=== PATIENT | male | born 1960 | race Caucasian/White ===

== ENCOUNTER → 2016-03-06 | Outpatient (CLI) | payer BC | LOC: GMAM 10:53 | PROVIDERS: ATTEND Family Medicine | DX: D51.9 Vitamin B12 deficiency anemia, unspecified (principal) ==

== ENCOUNTER → 2016-06-24 | Outpatient (CLI) | payer BC | END | disposition home or self-care (01) | LOC: GMAM 10:43 | PROVIDERS: ATTEND Family Medicine | DX: Z12.5 Encounter for screening for malignant neoplasm of prostate (principal); E29.1 Testicular hypofunction; E53.8 Deficiency of other specified B group vitamins ==

== ENCOUNTER → 2016-08-21 | Outpatient (CLI) | payer BC | END | disposition home or self-care (01) | LOC: GMAM 13:20 | PROVIDERS: ATTEND Family Medicine | DX: R07.89 Other chest pain (principal) ==

== ENCOUNTER → 2016-10-17 | Outpatient (CLI) | payer BC, SELFPAY ==
--- NOTE | 2016-10-17 14:57 | US ---
EXAM DESCRIPTION: Venous,Lower Extremity LT CLINICAL HISTORY: EDEMA COMPARISON: December 06, 2015 TECHNIQUE: 2D grayscale and color venous duplex Doppler evaluation of the lower extremity are obtained from groin to calf. FINDINGS: There is normal flow, augmentation to flow, and compressibility of the deep venous vasculature of the right lower extremity with no ultrasound evidence of deep venous thrombosis. Moderate subcutaneous edema in the distal lower extremity is seen. IMPRESSION: No ultrasound evidence of deep venous thrombosis . Moderate subcutaneous soft tissue edema in the distal right lower extremity is again seen. Electronically signed by: Dejuan Guerra MD 10/17/2016 2:56 PM CDT
== END | disposition home or self-care (01) ==
LOC: RAD 13:50
PROVIDERS: ATTEND Family Medicine
DX: R60.0 Localized edema (principal)

== ENCOUNTER → 2016-10-17 | Outpatient (CLI) | payer BC | END | disposition home or self-care (01) | LOC: GMAM 13:09 | PROVIDERS: ATTEND Family Medicine | DX: I10 Essential (primary) hypertension (principal) ==

== ENCOUNTER → 2016-11-24 | Outpatient (CLI) | payer BC ==
--- NOTE | 2016-11-25 00:28 | MRI ---
EXAM DATE: 11/24/2016 2:03 PM CDT. PROCEDURE: MR LUMBAR SPINE WITHOUT IV CONTRAST. INDICATION: LOW BACK PAIN. COMPARISON: Lumbar spine from 2015. TECHNIQUE: Multiplanar T1 and T2 MRI images of the lumbar were acquired without administration of intravenous contrast. FINDINGS: The lumbar vertebral bodies demonstrate normal height and alignment. There is mild intervertebral disc space height loss at L3-L4, L4-L5, L5-S1. Normal marrow signal. The conus terminates at the level of L1-L2. The cauda equina nerve roots are unremarkable. The partially visualized thoracic cord is normal. No is made of a congenitally small spinal canal. L1-L2: No significant disc bulge or spinal canal stenosis. Mild bilateral facet arthropathy without foraminal stenosis. L2-L3: No significant disc bulge or spinal canal stenosis. Moderate facet arthropathy without foraminal stenosis. L3-L4: Diffuse disc bulge and ligamentous hypertrophy contributes to severe spinal canal stenosis, mildly progressed from the prior exam. Moderate bilateral facet arthropathy contributes to mild bilateral foraminal narrowing. L4-L5: Mild disc bulge and ligamentous hypertrophy contributes to moderate spinal canal stenosis. Effacement of both lateral recesses. Moderate/severe bilateral facet arthropathy results in mild bilateral foraminal narrowing. L5-S1: No spinal canal stenosis. Moderate bilateral facet arthropathy with mild bilateral foraminal narrowing. The partially visualized abdominopelvic organs are unremarkable. IMPRESSION: Mild multilevel degenerative changes superimposed on a congenitally small spinal canal contributes to severe spinal canal stenosis at L3-L4, mildly progressed from the prior exam. Moderate spinal canal stenosis L4-L5. Facet arthropathy. Electronically signed by: Donnell Bell MD 11/25/2016 12:26 AM CDT
== END | disposition home or self-care (01) ==
LOC: MRI 13:49
PROVIDERS: ATTEND Physician Assistant
DX: M48.06 Spinal stenosis, lumbar region (principal)

== ENCOUNTER → 2017-01-02 | Outpatient (CLI) | payer BC | END | disposition home or self-care (01) | LOC: LAB.O 12:43 | PROVIDERS: ATTEND Family Medicine | DX: J20.9 Acute bronchitis, unspecified (principal) ==

== ENCOUNTER → 2017-01-26 | Outpatient (CLI) | payer BC | END | disposition home or self-care (01) | LOC: GMAM 14:00 | PROVIDERS: ATTEND Family Medicine | DX: I10 Essential (primary) hypertension (principal); E11.9 Type 2 diabetes mellitus without complications; E29.1 Testicular hypofunction; E53.8 Deficiency of other specified B group vitamins ==

== ENCOUNTER → 2017-05-01 | Outpatient (CLI) | payer BC | LOC: GMAM 10:28 | PROVIDERS: ATTEND Family Medicine | DX: E29.1 Testicular hypofunction (principal); E53.8 Deficiency of other specified B group vitamins ==

== ENCOUNTER 2017-05-02 09:45 | Emergency (ER) | payer BC ==
[2017-05-02] MEDS ORDERED: predniSONE 20 MG TAB PO ONE (10:16)
[2017-05-02] MEDS ORDERED: KETOROLAC TROMETHAMINE INJ 60 MG/2 ML VIAL IM ONE (10:16)
[2017-05-02] MEDS ORDERED: PREGABALIN 75 MG CAP PO ONE (10:17)
--- NOTE | 2017-05-02 10:30 | ED.PDOC ---
History of Present Illness - General Chief Complaint: Back Pain or Injury Stated Complaint: Back pain Time Seen by Provider: 05/02/17 10:03 Source: patient Exam Limitations: no limitations - History of Present Illness Initial Comments: the patient is a 56-year-old male presenting to the emergency room secondary to chronic worsening low back pain. He does have significant spinal stenosis and is apparently scheduled for surgery towards the end of this month. He also apparently has some peripheral neuropathy from his diabetes. The patient's low back pain has been getting progressively worse over the last couple of weeks and especially over the last couple of days. The patient has been placed on tizanidine and hydrocodone by his primary care doctor. He reports these medications work for maybe 2 hours but then they stop working. He has the constipation under control that is due to the medications. No new symptoms just worsening of symptoms. No new sensory changes. No new weakness. No incontinence. No recent falls. He is additionally taking some prednisone and some ibuprofen at home. He has apparently been tried on gabapentin in the past with little relief. He has not been tried on Lyrica. He has taken some of his 's Tylenol 3 and tramadol without any additional benefit. He has taken some of her Xanax without any additional benefit. Timing/Duration: unsure Severity: severe Improving Factors: nothing Worsening Factors: nothing Associated Symptoms: denies symptoms Allergies/Adverse Reactions: Allergies Clindamycin Allergy (Verified 05/02/17 09:55) Rash Home Medications: Ambulatory Orders Ascorbic Acid [Vitamin C] 1,000 mg PO DAILY 05/02/17 Aspirin [Aspirin Adult Low Dose] 81 mg PO DAILY 05/02/17 Carisoprodol [Soma] 350 mg PO Q8HR PRN #60 tab 05/02/17 Dutasteride [Avodart] 0.5 mg PO DAILY 05/02/17 Esomeprazole Magnesium 40 mg PO DAILY 05/02/17 Exenatide [Bydureon] 2 mg SC WKLY 05/02/17 Furosemide 40 mg PO DAILY 05/02/17 Insulin Aspart [Novolog Flexpen] 20 unit SC BID 05/02/17 Insulin Degludec [Tresiba Flextouch] 100 unit SC DAILY 05/02/17 Losartan Potassium & Hydrochlo [Losartan Potassium/Hydroc 100-12.5 mg] 1 tab PO DAILY 05/02/17 Metformin HCl [Metformin HCl ER] 1,000 mg PO BID 05/02/17 Montelukast [Singulair] 10 mg PO DAILY 05/02/17 Potassium Chloride [K-Tab] 20 meq PO DAILY 05/02/17 Pregabalin [Lyrica] 75 mg PO BID PRN #60 cap 05/02/17 Ranitidine HCl 150 mg PO DAILY 05/02/17 Simvastatin 20 mg PO DAILY 05/02/17 Tamsulosin [Flomax] 0.4 mg PO DAILY 05/02/17 Vitamin E [E-400] 400 unit PO DAILY 05/02/17 [email or web address] HCL CD [Cardizem CD] 300 mg PO DAILY 05/02/17 predniSONE [Prednisone] 20 mg PO DAILY #7 tab 05/02/17 Review of Systems - Review of Systems Constitutional: States: no symptoms reported EENTM: States: no symptoms reported Respiratory: States: no symptoms reported Cardiology: States: no symptoms reported Gastrointestinal/Abdominal: States: no symptoms reported Genitourinary: States: no symptoms reported Musculoskeletal: States: see HPI Skin: States: no symptoms reported Neurological: States: see HPI Endocrine: States: no symptoms reported All other Systems: No Change from Baseline Past Medical History (General) - Patient Medical History Hx Stroke: No Hx Cardiac Disorders: Yes - hypercholesterolemia Hx Congestive Heart Failure: No Hx Hypertension: Yes Hx Diabetes: Yes Hx Gastroesophageal Reflux: Yes Hx MRSA: No Surgical History: other - Vaccination History Hx Influenza Vaccination: Yes - 2016 Hx Pneumococcal Vaccination: Yes - 2014 - Social History Hx Tobacco Use: No Family Medical History - Family History Father Living Status: Cause of : Pancreatic [place] Physical Exam - Physical Exam General Appearance: Alert, Obvious distress Eye Exam: bilateral normal Ears, Nose, Throat: hearing grossly normal, normal pharynx Neck: non-tender, supple Respiratory: no respiratory distress, no accessory muscle use Cardiovascular/Chest: normal peripheral pulses, no edema Peripheral Pulses: dorsalis pedis,right: 2+, dorsalis pedis,left: 2+ Gastrointestinal/Abdominal: non tender - obese, soft Rectal Exam: deferred Back Exam: CVA tenderness (R), CVA tenderness (L), decreased range of motion, muscle spasm Extremity: non-tender, no pedal edema, no calf tenderness, normal capillary refill Neurologic: remote pilot operator II-XII nml as tested, alert, oriented x 3 Skin Exam: normal color Comments: Vital Signs - 24 hr 05/02/17 09:54 Pulse Rate [ 124 H Left Radial] Respiratory 24 Rate Blood Pressure 166/99 [Left Arm] O2 Sat by Pulse 95 Oximetry Progress - Progress Progress: 05/02/17 10:32 the patient is a 56-year-old male presenting with persistent and progressive low back pain from spinal stenosis. the patient can continue taking his hydrocodone however no more than 7 tablets per day given the tylenol content. he may need to discuss with his primary care doctor next week a longer acting form with less tylenol content. the patient's muscle relaxers are going to be changed from tizanidine to soma as a trial to see if he gets more benefit. we are going to continue the prednisone at 20 mg daily for the next week. he does need to watch his blood sugars closely. additionally i'm going to add lyrica 75 mg 1-2 times daily as needed to see if he gets any additional relief. he does need to watch out for increased drowsiness. he did receive his first dose of lyrica as well as a dose of prednisone and a shot of toradol here. i'm not writing any additional anti-inflammatories in the form of nsaids given some questionable history of diabetes related chronic renal insufficiency. he needs to follow-up with his primary care doctor early next week. er warnings were given. he needs to keep well hydrated and avoid constipation. Departure - Departure Clinical Impression: Chronic lower back pain Qualifiers: Back pain laterality: unspecified Sciatica presence: unspecified whether sciatica present Qualified Code(s): M54.5 - Low back pain; G89.29 - Other chronic pain Disposition: Discharge to Home or Self Care Condition: Fair Departure Forms: ED Discharge - Pt. Copy, Patient Portal Self Enrollment Diet: diabetic diet Activity: increase activity as tolerated Referrals: Bashir Vasquez MD [Primary Care Provider] - 1-5 Days Prescriptions: Carisoprodol [Soma] 350 mg PO Q8HR PRN #60 tab PRN Reason: Muscle Spasms predniSONE [Prednisone] 20 mg PO DAILY #7 tab Pregabalin [Lyrica] 75 mg PO BID PRN #60 cap PRN Reason: Pain -- Moderate To Severe Home Medications: Ambulatory Orders Ascorbic Acid [Vitamin C] 1,000 mg PO DAILY 05/02/17 Aspirin [Aspirin Adult Low Dose] 81 mg PO DAILY 05/02/17 Carisoprodol [Soma] 350 mg PO Q8HR PRN #60 tab 05/02/17 Dutasteride [Avodart] 0.5 mg PO DAILY 05/02/17 Esomeprazole Magnesium 40 mg PO DAILY 05/02/17 Exenatide [Bydureon] 2 mg SC WKLY 05/02/17 Furosemide 40 mg PO DAILY 05/02/17 Insulin Aspart [Novolog Flexpen] 20 unit SC BID 05/02/17 Insulin Degludec [Tresiba Flextouch] 100 unit SC DAILY 05/02/17 Losartan Potassium & Hydrochlo [Losartan Potassium/Hydroc 100-12.5 mg] 1 tab PO DAILY 05/02/17 Metformin HCl [Metformin HCl ER] 1,000 mg PO BID 05/02/17 Montelukast [Singulair] 10 mg PO DAILY 05/02/17 Potassium Chloride [K-Tab] 20 meq PO DAILY 05/02/17 Pregabalin [Lyrica] 75 mg PO BID PRN #60 cap 05/02/17 Ranitidine HCl 150 mg PO DAILY 05/02/17 Simvastatin 20 mg PO DAILY 05/02/17 Tamsulosin [Flomax] 0.4 mg PO DAILY 05/02/17 Vitamin E [E-400] 400 unit PO DAILY 05/02/17 [email or web address] HCL CD [Cardizem CD] 300 mg PO DAILY 05/02/17 predniSONE [Prednisone] 20 mg PO DAILY #7 tab 05/02/17 Additional Instructions: the patient is a 56-year-old male presenting with persistent and progressive low back pain from spinal stenosis. the patient can continue taking his hydrocodone however no more than 7 tablets per day given the tylenol content. he may need to discuss with his primary care doctor next week a longer acting form with less tylenol content. the patient's muscle relaxers are going to be changed from tizanidine to soma as a trial to see if he gets more benefit. we are going to continue the prednisone at 20 mg daily for the next week. he does need to watch his blood sugars closely. additionally i'm going to add lyrica 75 mg 1-2 times daily as needed to see if he gets any additional relief. he does need to watch out for increased drowsiness. he did receive his first dose of lyrica as well as a dose of prednisone and a shot of toradol here. i'm not writing any additional anti-inflammatories in the form of nsaids given some questionable history of diabetes related chronic renal insufficiency. he needs to follow-up with his primary care doctor early next week. er warnings were given. he needs to keep well hydrated and avoid constipation.
[2017-05-02 10:44] VITALS: TEMP 97
[2017-05-02 10:47] VITALS: BP 175/99; O2SAT 97
== END 2017-05-02 10:48 | disposition home or self-care (01) ==
LOC: ER 09:45
DX: G89.29 Other chronic pain (principal); M54.5 Low back pain; E11.9 Type 2 diabetes mellitus without complications; I10 Essential (primary) hypertension; Z79.899 Other long term (current) drug therapy; Z79.82 Long term (current) use of aspirin; Z79.4 Long term (current) use of insulin
CPT/HCPCS: J1885; J7512

== ENCOUNTER 2017-07-25 07:14 | Emergency (ER) | payer BC ==
[2017-07-25 07:26] VITALS: BP 180/97; TEMP 97.4; O2SAT 96
[2017-07-25] MEDS ORDERED: LIDOCAINE 1% 10 ML VIAL INJ ONE (07:26)
--- NOTE | 2017-07-25 07:29 | ED.PDOC ---
History of Present Illness - General Chief Complaint: General Stated Complaint: Fishing hook to L 4th digit Time Seen by Provider: 07/25/17 07:28 Source: patient - History of Present Illness Initial Comments: Yves Alvarez 56 y/o male came to er fish hook accidentally stuck right 4th digit while fishing in [place].Unable to take it out. Timing/Duration: just prior to arrival Severity: moderate Location: extremities - right hand 4th digit Improving Factors: nothing Worsening Factors: movement Associated Symptoms: other - pain Allergies/Adverse Reactions: Allergies Clindamycin Allergy (Verified 05/02/17 09:55) Rash Home Medications: Ambulatory Orders Ascorbic Acid [Vitamin C] 1,000 mg PO DAILY 05/02/17 Aspirin [Aspirin Adult Low Dose] 81 mg PO DAILY 05/02/17 Carisoprodol [Soma] 350 mg PO Q8HR PRN #60 tab 05/02/17 Dutasteride [Avodart] 0.5 mg PO DAILY 05/02/17 Esomeprazole Magnesium 40 mg PO DAILY 05/02/17 Exenatide [Bydureon] 2 mg SC WKLY 05/02/17 Furosemide 40 mg PO DAILY 05/02/17 Insulin Aspart [Novolog Flexpen] 20 unit SC BID 05/02/17 Insulin Degludec [Tresiba Flextouch] 100 unit SC DAILY 05/02/17 Losartan Potassium & Hydrochlo [Losartan Potassium/Hydroc 100-12.5 mg] 1 tab PO DAILY 05/02/17 Metformin HCl [Metformin HCl ER] 1,000 mg PO BID 05/02/17 Montelukast [Singulair] 10 mg PO DAILY 05/02/17 Potassium Chloride [K-Tab] 20 meq PO DAILY 05/02/17 Pregabalin [Lyrica] 75 mg PO BID PRN #60 cap 05/02/17 Ranitidine HCl 150 mg PO DAILY 05/02/17 Simvastatin 20 mg PO DAILY 05/02/17 Tamsulosin [Flomax] 0.4 mg PO DAILY 05/02/17 Vitamin E [E-400] 400 unit PO DAILY 05/02/17 [email or web address] HCL CD [Cardizem CD] 300 mg PO DAILY 05/02/17 predniSONE [Prednisone] 20 mg PO DAILY #7 tab 05/02/17 Amoxicillin [Amoxil] 1,000 mg PO BID 7 Days #30 cap 07/25/17 Tramadol HCl 50 mg PO TID PRN #14 tab 07/25/17 Review of Systems - Review of Systems Constitutional: States: no symptoms reported EENTM: States: no symptoms reported Skin: States: see HPI All other Systems: Reviewed and Negative, No Change from Baseline Past Medical History (General) - Patient Medical History Hx Stroke: No Hx Cardiac Disorders: Yes - hypercholesterolemia Hx Congestive Heart Failure: No Hx Hypertension: Yes Hx Diabetes: Yes Hx Gastroesophageal Reflux: Yes Hx MRSA: No Surgical History: other - lumbar laminectomy - Vaccination History Hx Influenza Vaccination: Yes - 2016 Hx Pneumococcal Vaccination: Yes - 2014 - Social History Hx Tobacco Use: No Hx Physical Abuse: No Hx Emotional Abuse: No - Activities of Daily Living Patient Lives Alone: No Grooming Ability: Independent Eating (Feeding) Ability: Independent Toileting Ability: Independent Family Medical History - Family History Father Living Status: Cause of : Pancreatic [place] Physical Exam - Physical Exam General Appearance: Alert, Comfortable, No apparent distress Eyes, Ears, Nose, Throat Exam: normal ENT inspection Neck: supple, normal inspection Cardiovascular/Chest: regular rate, rhythm, no murmur Respiratory: lungs clear, normal breath sounds Gastrointestinal/Abdominal: non tender, soft Back Exam: normal inspection, no CVA tenderness Neurologic: no motor/sensory deficits, alert, oriented x 3 Skin Exam: warm/dry, normal color Skin Problem Location: upper extremities - 4th digit -retained fish hoook Lymphatic: no adenopathy Progress - Progress Progress: 07/25/17 07:36 Vital Signs - 24 hr 07/25/17 07:22 Temperature 97.4 F L Pulse Rate [ 79 Left Radial] Respiratory 20 Rate Blood Pressure 180/97 [Left Arm] O2 Sat by Pulse 96 Oximetry - EKG/XRAY/CT XRAY: hand - soft tissue FB 4th digit right Procedures - Foreign Body Removal Foreign Body Removal: fish hook - right 4th digit fish hook - cleanse with hibiclens then metacarpal block done 4th digit then using blade 2 skin incision done volar aspect 4th digit then fish hook pulled out closed incision site with prolene -4-0 Departure - Departure Clinical Impression: Foreign body (FB) in soft tissue Time of Disposition: 08:38 Disposition: Discharge to Home or Self Care Condition: Fair Departure Forms: ED Discharge - Pt. Copy, Patient Portal Self Enrollment Instructions: DI for Removal of Foreign Body From Skin Referrals: Bashir Vasquez MD [Primary Care Provider] - 1-2 Weeks Prescriptions: Amoxicillin [Amoxil] 1,000 mg PO BID 7 Days #30 cap Tramadol HCl 50 mg PO TID PRN #14 tab PRN Reason: Pain Home Medications: Ambulatory Orders Ascorbic Acid [Vitamin C] 1,000 mg PO DAILY 05/02/17 Aspirin [Aspirin Adult Low Dose] 81 mg PO DAILY 05/02/17 Carisoprodol [Soma] 350 mg PO Q8HR PRN #60 tab 05/02/17 Dutasteride [Avodart] 0.5 mg PO DAILY 05/02/17 Esomeprazole Magnesium 40 mg PO DAILY 05/02/17 Exenatide [Bydureon] 2 mg SC WKLY 05/02/17 Furosemide 40 mg PO DAILY 05/02/17 Insulin Aspart [Novolog Flexpen] 20 unit SC BID 05/02/17 Insulin Degludec [Tresiba Flextouch] 100 unit SC DAILY 05/02/17 Losartan Potassium & Hydrochlo [Losartan Potassium/Hydroc 100-12.5 mg] 1 tab PO DAILY 05/02/17 Metformin HCl [Metformin HCl ER] 1,000 mg PO BID 05/02/17 Montelukast [Singulair] 10 mg PO DAILY 05/02/17 Potassium Chloride [K-Tab] 20 meq PO DAILY 05/02/17 Pregabalin [Lyrica] 75 mg PO BID PRN #60 cap 05/02/17 Ranitidine HCl 150 mg PO DAILY 05/02/17 Simvastatin 20 mg PO DAILY 05/02/17 Tamsulosin [Flomax] 0.4 mg PO DAILY 05/02/17 Vitamin E [E-400] 400 unit PO DAILY 05/02/17 [email or web address] HCL CD [Cardizem CD] 300 mg PO DAILY 05/02/17 predniSONE [Prednisone] 20 mg PO DAILY #7 tab 05/02/17 Amoxicillin [Amoxil] 1,000 mg PO BID 7 Days #30 cap 07/25/17 Tramadol HCl 50 mg PO TID PRN #14 tab 07/25/17 Additional Instructions: Removal of sutures 04 August 2017 [facility];Replaced wound dressing 28 jul 2017 with OTC Band aid.
[2017-07-25] MEDS ORDERED: TETANUS,DIPHTHERIA,PERTUSSIS 1 EA SYG IM ONE (07:37)
[2017-07-25] MEDS ORDERED: AMOXICILLIN 500 MG CAP PO ONE ×2 (07:37→08:16)
--- NOTE | 2017-07-25 07:57 | RAD ---
EXAM: Three view(s) of the right hand. INDICATION: Pain. COMPARISON: None. FINDINGS: No acute fracture or dislocation. There are fish hooks within the soft tissues of the fourth digit. The joint spaces are preserved. IMPRESSION: Fish hooks within the soft tissues of the fourth digit Electronically signed by: Spenser Quispe MD 07/25/2017 7:56 AM CDT Workstation: [email or web address]
[2017-07-25] MEDS ORDERED: HYDROcodone 10MG/APAP 325MG 1 EA TAB PO ONE (08:43)
== END 2017-07-25 08:50 | disposition home or self-care (01) ==
LOC: ER 07:14
DX: S60.454A Superficial foreign body of right ring finger, initial encounter (principal); Z23 Encounter for immunization; I10 Essential (primary) hypertension; E78.00 Pure hypercholesterolemia, unspecified; Z79.4 Long term (current) use of insulin; Z79.82 Long term (current) use of aspirin; Z79.84 Long term (current) use of oral hypoglycemic drugs; X58.XXXA Exposure to other specified factors, initial encounter; Y92.9 Unspecified place or not applicable

== ENCOUNTER → 2017-07-31 | Outpatient (CLI) | payer BC | LOC: GMAM 11:18 | PROVIDERS: ATTEND Family Medicine | DX: E29.1 Testicular hypofunction (principal); E53.8 Deficiency of other specified B group vitamins ==

== ENCOUNTER → 2017-11-09 | Outpatient (CLI) | payer BC | LOC: GMAM 11:50 | PROVIDERS: ATTEND Family Medicine | DX: E29.1 Testicular hypofunction (principal); E53.8 Deficiency of other specified B group vitamins ==

== ENCOUNTER → 2018-04-03 | Outpatient (CLI) | payer BC | LOC: LAB.O 13:06 | PROVIDERS: ATTEND Family Medicine | DX: R30.0 Dysuria (principal) ==

== ENCOUNTER → 2018-08-02 | Outpatient (CLI) | payer BC | LOC: GMAM 15:13 | PROVIDERS: ATTEND Family Medicine | DX: E53.8 Deficiency of other specified B group vitamins (principal); I10 Essential (primary) hypertension; E11.9 Type 2 diabetes mellitus without complications; E29.1 Testicular hypofunction ==

== ENCOUNTER → 2018-09-27 | Outpatient (CLI) | payer BC ==
--- NOTE | 2018-09-28 08:13 | MRI ---
EXAM DESCRIPTION: Lumbar Spine w/o Contrast : Magnetic Resonance Imaging. CLINICAL HISTORY: LUMBAR RADICULOPATHY. Radiating pain down right leg. COMPARISON: MRI scan lumbar spine without contrast 11/24/2016. TECHNIQUE: Multiplanar, multiple standard sequences, non contrast MRI, lumbar spine. FINDINGS: The L5-S1 disc is well visualized on T2 axial series 501, image 3. Again noted is rudimentary disc at S1-S2. Minimal disc space loss and desiccation. No posterior bulging into the canal. Left facet hypertrophic arthrosis and thickened flavum ligament. Left lateral disc bulge into the soft tissues abutting the exiting left L5 nerve with borderline bony foraminal stenosis and moderate right foraminal narrowing. Stable since the prior study. L4-L5: Disc desiccation and minimal disc space loss. Posterior broad-based disc bulge with minimal endplate spurs. Bilateral moderate hypertrophic facet arthrosis and ligament thickening more on the left. AP canal diameter 10 mm. Moderate bilateral foraminal narrowing. Minimal increase in foraminal narrowing since the prior study.. L3-L4: Prior bilateral partial laminectomy and decompression. Bilateral moderate hypertrophic facet arthrosis and ligament thickening. Granulation tissue around the thecal sac and narrowing of the left subarticular recess. Posterior disc margin is smaller since the prior study. Postsurgical soft tissue changes in the posterior fascia and adipose tissue. AP canal diameter 8 mm. L2-L3: Disc space maintained with no disc desiccation. Minimal hypertrophy of the posterior ligaments and facets. AP canal diameter 9 mm. Bilateral mild foraminal narrowing. Stable since the prior study. L1-L2: Disc space maintained with normal signal in the disc. AP canal diameter 12 mm. Minimal thickening of the posterior ligaments. Bilateral foramina are patent. No change since the prior study. T12-L1: Anterior disc space maintained with narrowing posterior. Minimal disc desiccation but no bulge. Posterior elements unremarkable. Canal and foramina are patent. Stable since the prior study. No scoliosis. Paravertebral soft tissues unremarkable except for postsurgical changes noted above.. Cord normal signal and caliber. Normal marrow signal in the remaining vertebral bodies and the posterior elements. Vertebral bodies are not compressed at any level. IMPRESSION: 1. Multiple levels of the desiccated discs. Posterior elements with arthrosis and thickening generally new canal narrowing. Also multiple levels of bilateral shortened pedicles contributing to canal narrowing. 2. Left lateral L5-S1 disc bulge abutting the left L5 nerve with borderline foraminal stenosis. Moderate right foraminal narrowing. Mild canal narrowing. Stable since the prior study. 3. Minimal increase in bilateral foraminal narrowing at L4-5 since the prior study. Stable borderline mild central canal stenosis. 4. Bilateral partial laminectomy and partial discectomy at L3-4 since the prior study. Mild decompression, but central canal stenosis is mild to moderate. 5. Mild central canal stenosis at L2-3 stable since the prior study. Mild to moderate narrowing of the L1-L2 canal. Electronically signed by: Ryan Torres MD 09/28/2018 8:12 AM CDT
== END ==
LOC: MRI 06:57
PROVIDERS: ATTEND Family Medicine
DX: M51.16 Intervertebral disc disorders with radiculopathy, lumbar region (principal); M51.17 Intervertebral disc disorders with radiculopathy, lumbosacral region; M48.062 Spinal stenosis, lumbar region with neurogenic claudication

== ENCOUNTER → 2018-12-28 | Outpatient (CLI) | payer BC | LOC: LAB.O 09:51 | PROVIDERS: ATTEND Family Medicine | DX: D45 Polycythemia vera (principal) ==

== ENCOUNTER → 2019-04-11 | Outpatient (CLI) | payer BC | LOC: GMAM 12:41 | PROVIDERS: ATTEND Family Medicine | DX: N41.0 Acute prostatitis (principal); E11.9 Type 2 diabetes mellitus without complications; R79.89 Other specified abnormal findings of blood chemistry ==

== ENCOUNTER → 2019-04-11 | Outpatient (CLI) | payer BC | LOC: LAB.O 09:39 | PROVIDERS: ATTEND Family Medicine | DX: N41.0 Acute prostatitis (principal); E11.9 Type 2 diabetes mellitus without complications; R79.89 Other specified abnormal findings of blood chemistry ==

== ENCOUNTER → 2019-07-08 | Outpatient (CLI) | payer BC | LOC: GMAM 11:40 | PROVIDERS: ATTEND Family Medicine | DX: E53.8 Deficiency of other specified B group vitamins (principal); I10 Essential (primary) hypertension; E11.9 Type 2 diabetes mellitus without complications; E29.1 Testicular hypofunction; E55.9 Vitamin D deficiency, unspecified ==

== ENCOUNTER → 2020-03-20 | Outpatient (CLI) | payer BC | LOC: GMAM 14:21 | PROVIDERS: ATTEND Family Medicine | DX: E53.8 Deficiency of other specified B group vitamins (principal); I10 Essential (primary) hypertension; E11.9 Type 2 diabetes mellitus without complications; E29.1 Testicular hypofunction; E55.9 Vitamin D deficiency, unspecified ==

== ENCOUNTER → 2020-03-29 | Outpatient (CLI) | payer BC ==
--- NOTE | 2020-04-02 10:17 | NM ---
EXAM DESCRIPTION: Gastric Emptying Study CLINICAL HISTORY: 59 years Male, right upper quadrant abdominal pain COMPARISON: None available TECHNIQUE: Following an overnight fast, the patient consumed a meal containing 2 scrambled eggs, 1 slice of toast with jelly, and 120 mL of water. The eggbeaters was labeled with 1.1 mCi of Tc99m sulfur colloid. Imaging was acquired over the abdomen at various time intervals following consumption of the meal, and gastric emptying was calculated. FINDINGS: Tc99m sulfur colloid activity from the meal is seen in the stomach, and demonstrates progressive excretion into the small bowel. Gastric retention at: 0 hour: 100% 1 hour: 73% 2 hours: 36% 4 hours: <1% (> 99% gastric emptying) IMPRESSION: 1. Normal gastric emptying with >99% gastric emptying by 4 hrs. Reference: Am J Gastroenterol 2008;103:753-763. Grading for severity of delayed gastric emptying based on 4-hour value in groups related to the standard deviation of the normal results: Grade 1 (mild): 11-20% retention at 4 hrs. Grade 2 (moderate): 21-35% retention at 4 hrs. Grade 3 (severe): 36-50% retention at 4 hrs. Grade 4 (very severe): >50% retention at 4 hrs. Electronically signed by: Carlos Lerma MD 04/02/2020 10:[address] [facility]
== END ==
LOC: NM 08:42
DX: K21.9 Gastro-esophageal reflux disease without esophagitis (principal); E66.01 Morbid (severe) obesity due to excess calories; Z68.39 Body mass index [BMI] 39.0-39.9, adult; R10.13 Epigastric pain; R10.11 Right upper quadrant pain
CPT/HCPCS: 78264; A9541

== ENCOUNTER → 2020-04-03 | Outpatient (CLI) | payer BC | LOC: GMAM 15:07 | PROVIDERS: ATTEND Family Medicine | DX: M79.671 Pain in right foot (principal) ==